=== PATIENT | female | born 1960 | race Caucasian/White ===

== ENCOUNTER 2021-05-05 19:04 | Inpatient (IN) ==
[2021-05-05 20:01] LABS: Basophils % 0.3 % (0.0-0.8); Eosinophils # 0.1 10*3/uL (0.0-0.87); Eosinophils % 0.5 % (0.00-10.9); Hematocrit 33.9 VOL% (35.7-47.0); Hemoglobin 11.3 GM/DL (12.0-16.0); Immature Granulocytes % 0.4 %; Immature Granulocytes Absolute 0.05 #; Lymphocytes # 1.5 10*3/uL (1.4-4.0); Lymphocytes % 13.3 % (21.3-54.2); Mean Corpuscular HGB Conc 33.3 GM/DL (32-36); Mean Corpuscular Volume 87.1 FL (87-102); Mean Platelet Volume 10.4 FL (9.6-12.0); Monocytes % 6.4 % (1.7-12.7); Neutrophils % 79.1 % (38.7-73.9); Platelet Count 262 T/CUMM (130-400); Red Blood Count 3.89 MC/CUMM (3.8-5.5); Red Cell Distribution Width 13.9 % (9.3-17.3); White Blood Count 11.6 T/CUMM (4-12)
[2021-05-05] MEDS ORDERED: MORPHINE 2 MG/1 ML SYRINGE IV STA (20:09)
[2021-05-05] MEDS ORDERED: ONDANSETRON 4 MG/2 ML VIAL IV ONE (20:09)
[2021-05-05 20:19] LABS: Partial Thromboplastin Time 26.1 SECS (23.9-33.8)
[2021-05-05 20:22] LABS: Albumin 3.5 G/DL (3.4-5.0); Bilirubin,Total 0.6 MG/DL (0.20-1.00); Calcium 9.4 MG/DL (8.5-10.1); Osmolality,Calculated 274.8 MOS/KG (273-304); Potassium 3.5 MMOL/L (3.5-5.1)
[2021-05-05] MEDS ORDERED: NITROGLYCERIN SL 0.4 MG TABLET SL STA (20:33)
[2021-05-05] MEDS ORDERED: TICAGRELOR 90 MG TABLET PO STA (20:33)
[2021-05-05] MEDS ORDERED: ENOXAPARIN 30 MG/0.3 ML SYRINGE SUBCUT STA (20:41)
[2021-05-05] MEDS ORDERED: ENOXAPARIN 100 MG/ML SYRINGE SUBCUT ONE (20:53)
[2021-05-05 22:25] LABS: Bilirubin,Urine Negative (Negative); Blood, Urine Negative (Negative); Glucose,Urine (UA) Negative (Negative); Ketones,Urine Negative (Negative); Mucus,Urine Occasional /LPF (Occasional); Nitrite,Urine Negative (Negative); Protein,Urine Negative; Squamous Epithelial Cell,Urine Occasional /HPF (0-10); Urine Appearance CLEAR (Clear); Urine Color Yellow (Yellow); Urine Specific Gravity 1.026 (1.001-1.035); Urine Urobilinogen < 2.0 EU/DL (0.2-1.0)
[2021-05-06] MEDS ORDERED: GLUCAGON 1 MG VIAL IM PRN (00:04)
[2021-05-06] MEDS ORDERED: DEXTROSE 50% 25 GM/50 ML VIAL IV PRN (00:04)
[2021-05-06] MEDS ORDERED: SODIUM CHLORIDE 0.9% 1,000 ML IV SCH (00:30)
[2021-05-06] MEDS ORDERED: cefTRIAXone 2,000 MG in SODIUM CHLORIDE 0.9% 100 ML IV SCH (01:30)
[2021-05-06] MEDS: ONDANSETRON 4 MG/2 ML VIAL IV PRN ×3 (01:44→11:31)
[2021-05-06] MEDS: MORPHINE 2 MG/1 ML SYRINGE IV PRN ×3 (01:49→11:39)
[2021-05-06 05:31] LABS: Basophils % 0.2 % (0.0-0.8); Hematocrit 35.2 VOL% (35.7-47.0); Hemoglobin 11.8 GM/DL (12.0-16.0); Immature Granulocytes % 0.4 %; Immature Granulocytes Absolute 0.04 #; Lymphocytes # 0.4 10*3/uL (1.4-4.0); Lymphocytes % 4.1 % (21.3-54.2); Mean Corpuscular HGB Conc 33.5 GM/DL (32-36); Mean Corpuscular Volume 88.2 FL (87-102); Mean Platelet Volume 10.5 FL (9.6-12.0); Monocytes % 7.2 % (1.7-12.7); Neutrophils % 88.1 % (38.7-73.9); Platelet Count 241 T/CUMM (130-400); Red Blood Count 3.99 MC/CUMM (3.8-5.5); White Blood Count 10.8 T/CUMM (4-12)
[2021-05-06 06:10] LABS: Risk Ratio 3.25; VLDL Cholesterol 9.2 MG/DL
[2021-05-06 06:24] LABS: Albumin 3.5 G/DL (3.4-5.0); Bilirubin,Total 2.1 MG/DL (0.20-1.00); Calcium 9.5 MG/DL (8.5-10.1); Osmolality,Calculated 273.8 MOS/KG (273-304); Potassium 3.5 MMOL/L (3.5-5.1); Total Protein 7.1 G/DL (6.4-8.2)
[2021-05-06 07:28] LABS: Anisocytosis 1+; Band Neutrophils 38 % (0-10); Lymphocytes 6 % (20-55); Platelet Estimate Normal; Segmented Neutrophils 50 % (50-85); Total Cells Counted 100
[2021-05-06] MEDS ORDERED: DEXT 5% NACL 0.45% KCL 20 MEQ 20 MEQ/1,000 ML BAG IV SCH (08:30)
[2021-05-06] MEDS: MEROPENEM 500 MG in SODIUM CHLORIDE 0.9% 100 ML IV SCH ×3 (10:09→21:58)
[2021-05-06] MEDS: PANTOPRAZOLE 40 MG VIAL IV SCH ×2 (10:10→21:58)
[2021-05-06] MEDS: atenoloL 50 MG TABLET PO SCH (10:18)
[2021-05-06] MEDS ORDERED: METOCLOPRAMIDE 10 MG/2 ML VIAL IV PRN (12:21)
[2021-05-06] MEDS: ENOXAPARIN 40 MG/0.4 ML SYRINGE SUBCUT SCH (14:35)
[2021-05-06] MEDS: HYDROmorphone 2 MG/1 ML VIAL IV PRN ×2 (14:49→18:48)
[2021-05-06] MEDS: POTASSIUM CHLORIDE INJ 20 MEQ in LACTATED RINGERS 1,000 ML IV SCH ×2 (18:51→23:14)
[2021-05-07] MEDS: POTASSIUM CHLORIDE INJ 20 MEQ in LACTATED RINGERS 1,000 ML IV SCH ×5 (02:00→23:20)
[2021-05-07] MEDS: MEROPENEM 500 MG in SODIUM CHLORIDE 0.9% 100 ML IV SCH ×4 (02:05→20:17)
[2021-05-07] MEDS: HYDROmorphone 2 MG/1 ML VIAL IV PRN ×4 (05:22→20:18)
[2021-05-07 05:39] LABS: Basophils % 0.2 % (0.0-0.8); Eosinophils % 0.1 % (0.00-10.9); Hematocrit 35.3 VOL% (35.7-47.0); Hemoglobin 11.7 GM/DL (12.0-16.0); Immature Granulocytes % 0.5 %; Immature Granulocytes Absolute 0.05 #; Lymphocytes % 8.6 % (21.3-54.2); Mean Corpuscular HGB Conc 33.1 GM/DL (32-36); Mean Corpuscular Volume 88.9 FL (87-102); Mean Platelet Volume 10.4 FL (9.6-12.0); Neutrophils % 82.6 % (38.7-73.9); Platelet Count 233 T/CUMM (130-400); Red Blood Count 3.97 MC/CUMM (3.8-5.5); Red Cell Distribution Width 14.4 % (9.3-17.3); White Blood Count 11.1 T/CUMM (4-12)
[2021-05-07 06:08] LABS: Potassium 4.3 MMOL/L (3.5-5.1)
[2021-05-07 06:10] LABS: Calcium 8.7 MG/DL (8.5-10.1)
[2021-05-07 06:16] LABS: Albumin 2.9 G/DL (3.4-5.0); Bilirubin,Total 4.7 MG/DL (0.20-1.00); Osmolality,Calculated 272.7 MOS/KG (273-304); Total Protein 6.3 G/DL (6.4-8.2)
[2021-05-07] MEDS: ONDANSETRON 4 MG/2 ML VIAL IV PRN ×3 (10:18→20:18)
[2021-05-07] MEDS: PANTOPRAZOLE 40 MG VIAL IV SCH ×2 (11:27→20:17)
[2021-05-07] MEDS: atenoloL 50 MG TABLET PO SCH (11:28)
[2021-05-07] MEDS: ENOXAPARIN 40 MG/0.4 ML SYRINGE SUBCUT SCH (11:28)
[2021-05-08] MEDS: ONDANSETRON 4 MG/2 ML VIAL IV PRN ×3 (02:09→13:15)
[2021-05-08] MEDS: MEROPENEM 500 MG in SODIUM CHLORIDE 0.9% 100 ML IV SCH ×4 (02:09→21:49)
[2021-05-08] MEDS: PROMETHAZINE INJ 12.5 MG in SODIUM CHLORIDE 0.9% 50 ML IV PRN ×2 (03:40→15:43)
[2021-05-08 05:04] LABS: Basophils % 0.3 % (0.0-0.8); Eosinophils % 0.2 % (0.00-10.9); Hematocrit 32.3 VOL% (35.7-47.0); Hemoglobin 10.9 GM/DL (12.0-16.0); Lymphocytes # 0.7 10*3/uL (1.4-4.0); Lymphocytes % 7.1 % (21.3-54.2); Mean Corpuscular HGB Conc 33.7 GM/DL (32-36); Mean Corpuscular Volume 89.7 FL (87-102); Mean Platelet Volume 10.3 FL (9.6-12.0); Monocytes % 9.4 % (1.7-12.7); Platelet Count 213 T/CUMM (130-400); Red Cell Distribution Width 14.3 % (9.3-17.3)
[2021-05-08 05:57] LABS: Albumin 2.5 G/DL (3.4-5.0); Bilirubin,Total 5.5 MG/DL (0.20-1.00); Calcium 8.3 MG/DL (8.5-10.1); Osmolality,Calculated 268.8 MOS/KG (273-304); Potassium 3.7 MMOL/L (3.5-5.1); Total Protein 5.9 G/DL (6.4-8.2)
[2021-05-08 05:58] LABS: Albumin 2.5 G/DL (3.4-5.0); Bilirubin,Direct 4.1 MG/DL (0.0-0.20); Bilirubin,Indirect 1.9 MG/DL (0.0-1.0); Total Protein 5.9 G/DL (6.4-8.2)
[2021-05-08] MEDS: POTASSIUM CHLORIDE INJ 20 MEQ in LACTATED RINGERS 1,000 ML IV SCH ×4 (06:18→22:59)
[2021-05-08] MEDS: HYDROmorphone 2 MG/1 ML VIAL IV PRN ×3 (06:18→21:50)
[2021-05-08] MEDS: atenoloL 50 MG TABLET PO SCH ×2 (06:18→11:02)
[2021-05-08] MEDS: PANTOPRAZOLE 40 MG VIAL IV SCH ×2 (09:38→21:49)
[2021-05-08] MEDS: ENOXAPARIN 40 MG/0.4 ML SYRINGE SUBCUT SCH (09:39)
[2021-05-09] MEDS: POTASSIUM CHLORIDE INJ 20 MEQ in LACTATED RINGERS 1,000 ML IV SCH ×2 (01:00→16:42)
[2021-05-09] MEDS: HYDROmorphone 2 MG/1 ML VIAL IV PRN ×7 (02:28→20:11)
[2021-05-09] MEDS: MEROPENEM 500 MG in SODIUM CHLORIDE 0.9% 100 ML IV SCH ×4 (02:28→20:11)
[2021-05-09 05:36] LABS: Basophils % 0.4 % (0.0-0.8); Eosinophils % 0.4 % (0.00-10.9); Hematocrit 35.1 VOL% (35.7-47.0); Hemoglobin 11.7 GM/DL (12.0-16.0); Immature Granulocytes Absolute 0.08 #; Lymphocytes # 0.8 10*3/uL (1.4-4.0); Mean Corpuscular HGB Conc 33.3 GM/DL (32-36); Mean Corpuscular Volume 87.5 FL (87-102); Mean Platelet Volume 10.4 FL (9.6-12.0); Monocytes % 5.3 % (1.7-12.7); NRBC # 0.02 10*3/uL; Neutrophils % 82.9 % (38.7-73.9); Platelet Count 248 T/CUMM (130-400); Red Blood Count 4.01 MC/CUMM (3.8-5.5); Red Cell Distribution Width 14.2 % (9.3-17.3); White Blood Count 7.9 T/CUMM (4-12)
[2021-05-09 06:05] LABS: Albumin 2.7 G/DL (3.4-5.0); Bilirubin,Direct 7.04 MG/DL (0.0-0.20); Bilirubin,Indirect 2.1 MG/DL (0.0-1.0); Bilirubin,Total 9.1 MG/DL (0.20-1.00); Total Protein 6.5 G/DL (6.4-8.2)
[2021-05-09 06:13] LABS: Albumin 2.7 G/DL (3.4-5.0); Bilirubin,Total 9.4 MG/DL (0.20-1.00); Calcium 8.9 MG/DL (8.5-10.1); Osmolality,Calculated 266.1 MOS/KG (273-304); Potassium 3.8 MMOL/L (3.5-5.1); Total Protein 6.5 G/DL (6.4-8.2)
[2021-05-09] MEDS: ONDANSETRON 4 MG/2 ML VIAL IV PRN ×2 (09:05→13:22)
[2021-05-09] MEDS: PANTOPRAZOLE 40 MG VIAL IV SCH ×2 (09:12→20:11)
[2021-05-09] MEDS: atenoloL 50 MG TABLET PO SCH (09:15)
[2021-05-09] MEDS: ENOXAPARIN 40 MG/0.4 ML SYRINGE SUBCUT SCH (10:13)
[2021-05-10] MEDS: HYDROmorphone 2 MG/1 ML VIAL IV PRN ×2 (00:53→04:05)
[2021-05-10] MEDS: MEROPENEM 500 MG in SODIUM CHLORIDE 0.9% 100 ML IV SCH ×4 (04:04→20:35)
[2021-05-10 04:58] LABS: Basophils % 0.3 % (0.0-0.8); Eosinophils % 0.3 % (0.00-10.9); Hemoglobin 11.5 GM/DL (12.0-16.0); Immature Granulocytes % 0.9 %; Immature Granulocytes Absolute 0.11 #; Lymphocytes # 1.3 10*3/uL (1.4-4.0); Lymphocytes % 10.1 % (21.3-54.2); Mean Corpuscular HGB Conc 32.9 GM/DL (32-36); Mean Corpuscular Volume 86.2 FL (87-102); Monocytes % 12.5 % (1.7-12.7); Neutrophils % 75.9 % (38.7-73.9); Platelet Count 258 T/CUMM (130-400); Red Blood Count 4.06 MC/CUMM (3.8-5.5); Red Cell Distribution Width 14.6 % (9.3-17.3); White Blood Count 12.6 T/CUMM (4-12)
[2021-05-10 05:06] LABS: INR 1.1; PT Patient Result 12.2 SECS (10.5-12.0)
[2021-05-10 05:46] LABS: Albumin 2.5 G/DL (3.4-5.0); Bilirubin,Total 11.4 MG/DL (0.20-1.00); Osmolality,Calculated 264.2 MOS/KG (273-304); Potassium 3.4 MMOL/L (3.5-5.1); Total Protein 6.3 G/DL (6.4-8.2)
[2021-05-10] MEDS ORDERED: INDOMETHACIN SUPP 50 MG SUPP RECTAL ONE (08:00)
[2021-05-10] MEDS: PANTOPRAZOLE 40 MG VIAL IV SCH ×2 (09:57→20:35)
[2021-05-10] MEDS: atenoloL 50 MG TABLET PO SCH (09:58)
[2021-05-10] MEDS ORDERED: propofoL 200 MG/20 ML VIAL IV ONE (13:33)
[2021-05-10] MEDS ORDERED: LIDOCAINE 2% 5 ML VIAL ONE (13:33)
[2021-05-10] MEDS ORDERED: ROCURONIUM 50 MG/5 ML VIAL IV ONE (13:34)
[2021-05-10] MEDS ORDERED: fentaNYL 100 MCG/2 ML VIAL ONE (13:35)
[2021-05-10] MEDS ORDERED: SUCCINYLCHOLINE 200 MG/10 ML VIAL ONE (13:35)
[2021-05-10] MEDS: LACTATED RINGERS 1,000 ML IV SCH (14:30)
[2021-05-10] MEDS: POTASSIUM CHLORIDE INJ 20 MEQ in LACTATED RINGERS 1,000 ML IV SCH (14:30)
[2021-05-10] MEDS ORDERED: NEOSTIGMINE 10 MG/10 ML VIAL ONE (14:36)
[2021-05-10] MEDS ORDERED: GLYCOPYRROLATE 0.4 MG/2 ML VIAL ONE (14:36)
[2021-05-10] MEDS ORDERED: ONDANSETRON 4 MG/2 ML VIAL ONE (14:40)
[2021-05-10] MEDS ORDERED: DEXAMETHASONE 4 MG/1 ML VIAL ONE (14:40)
[2021-05-10] MEDS ORDERED: METOPROLOL TARTRATE 5 MG/5 ML VIAL IV ONE (14:40)
[2021-05-10] MEDS: ONDANSETRON 4 MG/2 ML VIAL IV PRN (15:03)
[2021-05-11] MEDS: MEROPENEM 500 MG in SODIUM CHLORIDE 0.9% 100 ML IV SCH ×2 (03:26→09:41)
[2021-05-11] MEDS: POTASSIUM CHLORIDE INJ 20 MEQ in LACTATED RINGERS 1,000 ML IV SCH ×3 (03:26→05:56)
[2021-05-11 05:14] LABS: Basophils % 0.3 % (0.0-0.8); Eosinophils % 0.1 % (0.00-10.9); Hematocrit 31.2 VOL% (35.7-47.0); Hemoglobin 10.3 GM/DL (12.0-16.0); Immature Granulocytes % 2.3 %; Immature Granulocytes Absolute 0.23 #; Lymphocytes # 1.3 10*3/uL (1.4-4.0); Lymphocytes % 13.1 % (21.3-54.2); Mean Corpuscular Volume 87.6 FL (87-102); Mean Platelet Volume 10.1 FL (9.6-12.0); Monocytes % 10.1 % (1.7-12.7); Neutrophils % 74.1 % (38.7-73.9); Platelet Count 233 T/CUMM (130-400); Red Blood Count 3.56 MC/CUMM (3.8-5.5); Red Cell Distribution Width 14.6 % (9.3-17.3); White Blood Count 10.1 T/CUMM (4-12)
[2021-05-11 05:38] LABS: Hypochromasia 1+
[2021-05-11 05:39] LABS: Microcytosis 1+; Ovalocytes Slight; Platelet Estimate Normal
[2021-05-11 05:41] LABS: Albumin 2.1 G/DL (3.4-5.0); Bilirubin,Total 8.9 MG/DL (0.20-1.00); Calcium 8.3 MG/DL (8.5-10.1); Osmolality,Calculated 268.1 MOS/KG (273-304); Potassium 3.8 MMOL/L (3.5-5.1); Total Protein 5.4 G/DL (6.4-8.2)
[2021-05-11 08:34] VITALS: BP 132/53
[2021-05-11] MEDS: atenoloL 50 MG TABLET PO SCH (09:43)
[2021-05-11] MEDS: PANTOPRAZOLE 40 MG VIAL IV SCH (09:43)
[2021-05-11] MEDS: LACTATED RINGERS 1,000 ML IV SCH (14:03)
== END 2021-05-11 13:16 | disposition home or self-care (01) | DRG 439 ==
LOC: EDUNIT# → EDBD → N.ED 19:04 → N.EDINP 05-06 00:04 → SUATTDRO 05-06 00:04 → N.4E 05-06 01:00
PROVIDERS: ADMIT Hospitalist; ATTEND Internal Medicine Geriatric Medicine